=== PATIENT | female | born 1950 | race Caucasian/White ===

== ENCOUNTER → 2021-07-10 | Outpatient (CLI) | payer MEDICARE ==
--- NOTE | 2021-07-11 03:01 | MR ---
EXAMINATION TYPE: MR shoulder LT wo con DATE OF EXAM: 07/10/2021 COMPARISON: None HISTORY: Left shoulder pain and limited range of motion for 3 months. Multiplanar multiecho imaging of the left shoulder without contrast. There is mild shoulder joint effusion. The biceps tendon is intact. Subscapularis tendon is intact. There is some thickening and increased signal in the supraspinatus tendon in the subacromial joint sp blake and extending to the greater tuberosity. There is no retraction. There is full-thickness tear see n on the anterior aspect of the tendon. There is some mild spurring at the AC joint. There is moderat e subacromial joint space narrowing. There is fluid around the biceps tendon. Fluid is seen around th e subscapularis tendon. There is mild subdeltoid effusion. There is some mild deformity of the anteri or glenoid labrum. IMPRESSION: Full-thickness rotator cuff tear of the anterior supraspinatus tendon. Shoulder joint effusion and waddell bdeltoid effusion. Moderate subacromial joint space narrowing and impingement. 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 Anterior glenoid labral deformity consistent with a tear and degen erative changes..
== END | disposition home or self-care (01) ==
LOC: RADMRIMAIN 19:44
PROVIDERS: ATTEND Orthopaedic Surgery
DX: M75.122 Complete rotator cuff tear or rupture of left shoulder, not specified as traumatic (principal)

== ENCOUNTER → 2021-07-28 | Outpatient (CLI) | payer MEDICARE ==
[2021-07-28 14:09] LABS: Basophils # (A) 0.07 X 10*3/uL (0.00-0.10); Basophils % (A) 0.9 %; Eosinophils # (A) 0.25 X 10*3/uL (0.04-0.35); Eosinophils % (A) 3.2 %; HCT 43.5 % (37.2-46.3); HGB 13.8 g/dL (12.0-15.0); Immature Grans, Automated 0.1 %; Lymphocytes # (A) 2.04 X 10*3/uL (0.90-5.00); Lymphocytes % (A) 26.2 %; MCH 29.5 pg (27.0-32.0); MCHC 31.7 g/dL (32.0-37.0); MCV 92.9 fL (80.0-97.0); Mean Platelet Volume 10.6 fL (9.5-12.2); Monocytes # (A) 0.58 X 10*3/uL (0.20-1.00); Monocytes % (A) 7.5 %; NRBC Per 100 WBC 0 /100 WBCS (0.0-0.0); Neutrophils # (A) 4.83 X 10*3/uL (1.80-7.70); Neutrophils % (A) 62.1 %; Platelet Count 280 X 10*3/uL (140-440); RBC 4.68 X 10*6/uL (4.10-5.20); RDW 12.4 % (11.5-14.5); WBC 7.78 X 10*3/uL (4.50-10.00)
[2021-07-28 14:49] LABS: Anion Gap 10.9 mmol/L (10.00-18.00); Carbon Dioxide 24.6 mmol/L (20.0-27.5); Potassium 4.6 mmol/L (3.5-5.5)
== END | disposition home or self-care (01) ==
LOC: LABPAT 10:35
PROVIDERS: ATTEND Orthopaedic Surgery
DX: Z01.812 Encounter for preprocedural laboratory examination (principal); M75.42 Impingement syndrome of left shoulder
CPT/HCPCS: 80051; 85025

== ENCOUNTER 2022-01-15 08:08 | Day surgery (SDC) | payer MEDICARE ==
[2022-01-11 16:03] VITALS: BMI 26.4
--- NOTE | 2022-01-14 21:54 | HP ---
HISTORY AND PHYSICAL DATE OF SURGERY: 01/15/2022. HISTORY OF PRESENT ILLNESS: Jessica Escudero is a 72-year-old patient seen with persistent left shoulder adhesions with history of previous shoulder arthroscopy. We discussed options. She elected to proceed with manipulation under anesthesia of left shoulder with steroid injection. Consent was obtained. PAST MEDICAL HISTORY: Hypertension, hyperlipidemia, and zgp-yowkbgh-jqbxfgrby diabetes. PAST SURGICAL HISTORY: Shoulder arthroscopy, knee arthroscopy, cardiac catheterization, tonsillectomy. DAILY MEDICATIONS: 1. Aspirin. 2. Lisinopril. 3. Metformin. 4. Metoprolol. 5. Rosuvastatin. ALLERGIES: None. SOCIAL HISTORY: She denies tobacco use. PHYSICAL EXAMINATION: Evaluation of the left shoulder, her previous arthroscopic portal sites appear well healed. Her flexion is 90 degrees. Abduction is 90 degrees. External rotation is 30 degrees with good strength. Her distal neurovascular exam is intact. RADIOGRAPHS: Radiographs of the left shoulder revealed a stable conversion to a flat anterior acromion. IMPRESSION: 1. Left shoulder adhesive capsulitis. 2. History of previous left shoulder arthroscopy. 3. Hypertension. 4. Hyperlipidemia. 5. Mdm-valsqwh-yqgttfkzk diabetes. PLAN: Manipulation under anesthesia of left shoulder with steroid injection. MMODL / IJN: [id number] /
[~2022-01-15 08:08] MED LIST: DEXAMETHASONE SOD PHOSPHATE 4 MG/ML 1 ML VIAL IV ONE; HYDROmorphone 0.5 MG/0.5 ML SYRINGE IVP PRN; LACTATED RINGERS 1,000 ML IV SCH; ONDANSETRON 4 MG/2 ML VIAL IVP ONE
[2022-01-15 09:17] LABS: Glucose,Whole Blood 155 mg/dL (70-110)
[2022-01-15] MEDS ORDERED: fentaNYL (PF) 50 MCG/ML 2 ML AMP ONE (09:34)
[2022-01-15] MEDS ORDERED: PROPOFOL 10 MG/ML 20 ML VIAL IV ONE (09:34)
[2022-01-15] MEDS ORDERED: KETOROLAC 15 MG/ML 1 ML VIAL ONE (09:34)
[2022-01-15] MEDS ORDERED: BUPIVACAINE (PF) 0.25% 30 ML VIAL INTRAARTIC ONE (09:47)
[2022-01-15] MEDS ORDERED: methylPREDNISolone ACETATE 80 MG/ML 1 ML VIAL INTRAARTIC ONE (09:47)
--- NOTE | 2022-01-15 09:52 | P.OP ---
Date of Procedure: 01/15/22 Preoperative Diagnosis: Left shoulder adhesive capsulitis Postoperative Diagnosis: Left shoulder adhesive capsulitis Procedure(s) Performed: Manipulation under anesthesia left shoulder with steroid injection Anesthesia: MAC Surgeon: Fernando Villela Estimated Blood Loss (ml): 0 Pathology: none sent Condition: stable Disposition: PACU Indications for Procedure: 72-year-old patient seen with persistent adhesive capsulitis regarding left shoulder. We discussed options for treatment. She elected to proceed with manipulation under anesthesia with steroid injection. Operative Findings: See description of procedure Description of Procedure: Patient was taken to a monitored anesthesia area. She received IV sedation by the department of anesthesia. Once sufficient anesthesia was noted I performed a manipulation of left shoulder achieving full range of motion with audible tearing of adhesions. The anterior aspect of the left shoulder was prepped and draped in the normal sterile orthopedic fashion. I injected a mixture of 40 mg of Depo-Medrol and 2 mL quarter percent Marcaine intra-articular under sterile technique. I took the shoulder through a full range of motion. I applied a sterile Band-Aid. The patient was now awakened having tolerated procedure well.
[2022-01-15 09:59] VITALS: RESP 16; TEMP 97.3
[2022-01-15] MEDS ORDERED: HYDROcodone/APAP 7.5-325MG 1 EACH TAB ONE (10:39)
[2022-01-15] MEDS ORDERED: HYDROcodone/APAP 7.5-325MG 1 EACH TAB PO ONE (10:40)
[2022-01-15 11:08] VITALS: BP 118/73; PULSE 64
== END 2022-01-15 11:22 | disposition home or self-care (01) ==
LOC: OR 08:08
PROVIDERS: ATTEND Orthopaedic Surgery
DX: M75.02 Adhesive capsulitis of left shoulder (principal); I10 Essential (primary) hypertension; E78.5 Hyperlipidemia, unspecified; E11.9 Type 2 diabetes mellitus without complications; I25.2 Old myocardial infarction; Z98.890 Other specified postprocedural states; Z79.82 Long term (current) use of aspirin; Z95.9 Presence of cardiac and vascular implant and graft, unspecified; Z95.5 Presence of coronary angioplasty implant and graft; Z90.89 Acquired absence of other organs
CPT/HCPCS: 23700; J1040; J2405; J3010; J1885; J2704; J1170

== ENCOUNTER → 2023-06-05 | Outpatient (CLI) | payer MEDICARE ==
[2023-06-06 03:30] LABS: ALT 72 U/L (8-44); AST 40 U/L (13-35); Albumin 3.6 g/dL (3.8-4.9); Alkaline Phosphatase 89 U/L (41-126); BUN/Creat Ratio 23.29 Ratio (12.00-20.00); Blood Urea Nitrogen 16.3 mg/dL (9.0-27.0); Calcium 9.8 mg/dL (8.7-10.3); Carbon Dioxide 24.2 mmol/L (21.6-31.8); Chloride 106 mmol/L (96-109); Glucose 128 mg/dL (70-110); Potassium 4.2 mmol/L (3.5-5.5); Sodium 144 mmol/L (135-145); Total Bilirubin 0.3 mg/dL (0.3-1.2); Total Protein 6.6 g/dL (6.2-8.2)
[2023-06-06 03:47] LABS: Basophils # (A) 0.06 X 10*3/uL (0.00-0.10); Basophils % (A) 0.8 %; Eosinophils # (A) 0.11 X 10*3/uL (0.04-0.35); Eosinophils % (A) 1.4 %; HCT 43.4 % (37.2-46.3); Lymphocytes # (A) 1.62 X 10*3/uL (0.90-5.00); Lymphocytes % (A) 20.4 %; MCH 24.3 pg (27.0-32.0); Mean Platelet Volume 10.2 FL (9.5-12.2); Monocytes # (A) 0.98 X 10*3/uL (0.20-1.00); Monocytes % (A) 12.3 %; NRBC Per 100 WBC 0 X 10*3/uL (0.00-0.01); Neutrophils # (A) 5.15 X 10*3/uL (1.80-7.70); Neutrophils % (A) 64.6 %; Platelet Count 359 X 10*3/uL (140-440); RBC 5.36 X 10*6/uL (4.10-5.20); RDW 17.2 % (11.5-14.5); WBC 7.96 X 10*3/uL (4.50-10.00)
== END | disposition home or self-care (01) ==
LOC: LABWHC1 14:14
PROVIDERS: ATTEND Family Medicine
DX: E87.1 Hypo-osmolality and hyponatremia (principal); D75.839 Thrombocytosis, unspecified
CPT/HCPCS: 36415; 80053; 85025

== ENCOUNTER → 2023-06-19 | Outpatient (CLI) | payer MEDICARE ==
--- NOTE | 2023-06-19 11:05 | US ---
EXAMINATION TYPE: US abdomen complete DATE OF EXAM: 06/19/2023 COMPARISON: NONE CLINICAL INDICATION: Female, 73 years old with history of R74.8 ABNORMAL LEVELS OF OTHER SERUM ENZYME S; Liver enzymes above reference range TECHNIQUE: Multiple sonographic images of the abdomen are obtained. FINDINGS: EXAM MEASUREMENTS: Liver Length: 18.7 cm Gallbladder Wall: 0.29 cm CBD: 0.35 cm Spleen: 10.6 cm Right Kidney: 11.4 x 6.0 x 5.6 cm Left Kidney: 13.0 x 5.5 x 7.1 cm STRANNER NOTES: Exam is limited due to gas. Pancreas: Limited visibility of tail. Liver: Appears enlarged. Gallbladder: Appears anechoic, folds seen Evidence for sonographic Hou's sign: No CBD: Appears wnl Spleen: Appears wnl Right Kidney: Hyperechoic area seen laterally: 0.9 x 0.5 x 0.4 cm. Left Kidney: Appears enlarged. Isoechoic lesion seen lower pole: 7.0 x 5.9 x 5.6 cm. Upper IVC: Appears wnl Abd Aorta: Appears wnl IMPRESSION: 1. Question nonobstructing cortical stone within the left kidney versus an area of scarring. 2. No evidence of cholelithiasis or cholecystitis. 3. There appears to be a solid mass in the lower pole of the left kidney measuring 7.0 x 5.9 x 5.6 cm would raise the suspicion of a renal cell carcinoma and a renal mass protocol CT or MRI would BE rec ommended for further evaluation.
== END | disposition home or self-care (01) ==
LOC: RADUSWWP 06:46
PROVIDERS: ATTEND Family Medicine
DX: N28.89 Other specified disorders of kidney and ureter (principal); R74.8 Abnormal levels of other serum enzymes
CPT/HCPCS: 76700

== ENCOUNTER → 2023-06-25 | Outpatient (CLI) | payer MEDICARE ==
[2023-06-25 12:30] LABS: African American GFR (CKD) >90 (>60 ml/min/1.73 sqM); Blood Urea Nitrogen 17 mg/dL (7-17); Non-African American GFR(CKD) 90 (>60 ml/min/1.73 sqM)
--- NOTE | 2023-06-27 17:24 | CT ---
EXAMINATION TYPE: CT abdomen wo/w con CT DLP: 923 mGycm, Automated exposure control for dose reduction was used. DATE OF EXAM: 06/25/2023 1:31 PM COMPARISON: Abdomen Ultrasound 06/19/2023 CLINICAL INDICATION:Female, 73 years old with history of N28.89 disorder of kidney and ureter; Disord er of LT kidney and ureter, solid mass LT kidney seen on US. TECHNIQUE: CT abdomen performed per facility renal mass protocol. Axial unenhanced, post contrast, th ree-minute delayed images submitted. Sagittal and coronal reformats [facility] Contrast used:100 mL of Isovue 300 with IV Contrast, (none if empty) Oral contrast used: with Oral Contrast (none if empty) FINDINGS: LOWER CHEST: Several various sized solid rounded pulmonary nodules are seen in the included lung base s, largest 9 mm in the medial right lower lobe image 12 series 7. Heart size is within normal limits. Moderate coronary arterial calcifications. Possible small sliding hiatal hernia. ABDOMEN LIVER: No gross evidence of mass. There are a few tiny hypodensities seen which are too small to liv acterize. GALLBLADDER AND BILE DUCTS: Unremarkable gallbladder. No biliary ductal dilatation. PANCREAS: Unremarkable. SPLEEN: Vaguely marginated 1.6 cm hypodense lesion in the mid spleen, nonspecific. ADRENAL GLANDS: Mildly thickened and slightly nodular on the left. No gross evidence of mass. KIDNEYS AND UPPER URETERS: Right kidney: Small parenchymal scar in the superior kidney at its posteromedial aspect, with small u nderlying calcification which could be cortical. Otherwise no renal/upper ureteral calculi or hydrone phrosis. Postcontrast there is apparently normal corticomedullary enhancement without evidence of mas s. Delayed imaging best shows a 0.8 cm hypodense cortical lesion towards Morison's pouch with the caleb earance of a cyst. Right renal collecting system appears unremarkable as seen. Left kidney: No calculi are seen. In the mid to lower pole there is heterogeneously enhancing mass wh ich expands the kidney and bulges into the perinephric fat, especially along its inferolateral aspect ; this comes close to the spleen but there is a preserved fat plane. Greatest dimensions of the mass are 7.2 x 8.1 cm on axial image 35 series 6, and extends craniocaudally 6.1 cm. There are several sma ll enhancing vessels seen about the kidney at the level of the mass, which probably represents tumora l neovascularity. Additionally at the inferior aspect of the mass there is a small exophytic nodule m easuring 1.5 cm which appears contiguous with the mass and likely represents extension of tumor; this nearly touches the adjacent colon, however there appears to be preserved fat plane. There is questionable early invasion of a mid left renal calyx adjacent to the mass. Otherwise there is a mildly prominent left extrarenal pelvis which shows a fluid contrast level but no clear evidence of mass and the visualized upper ureter appears nondilated. STOMACH AND BOWEL: Contrast traverses the stomach and small bowel loops without evidence of obstructi on. Moderate stool in the visualized colon. Appendix not seen in the scope of this exam. PERITONEUM/RETROPERITONEUM: No evidence of pneumoperitoneum or free fluid. No intraperitoneal mass is seen. VASCULATURE: Mild to moderate atherosclerotic calcifications are present throughout the abdominal aor ta and its branches, including the splenic artery. No evidence of aortic aneurysm. Mild narrowing of the ostia of the celiac, superior mesenteric, bilateral renal arteries. IVC appears of normal caliber . Right renal vein enhances normally. The majority of the left renal vein enhances normally. Cannot e xclude early invasion of left renal venous branch in the mid kidney close to the level of the mass. LYMPH NODES: There are a few prominent left para-aortic lymph nodes at the level of the kidney, the l argest 1 cm image 38 series 6. No enlarged by CT criteria nodes are elsewhere seen. SOFT TISSUE/ABDOMINAL WALL: Tiny fat-containing umbilical hernia. MUSCULOSKELETAL: No acute osseous abnormalities. Mild disc degeneration changes are present throughou t the included spine. IMPRESSION: 1. An 8.1 cm left renal mass, almost certainly malignant probably renal cell carcinoma. There are ar eas of bulging/extension of tumor into the adjacent perinephric fat, without gross evidence of invasi on of adjacent organs. There is evidence of neovascularity associated with the mass. 2. Cannot exclude early invasion of a calyx in the mid left kidney, nor early invasion of a left ashely al venous branch in the mid kidney. No definite tumor extension is otherwise seen beyond the hilum. 3. A mildly enlarged and a few prominent additional left para-aortic nodes at the level of the kidne y, raising concern for early metastatic disease. 4. Small cortical scar of the right kidney with small underlying calcification. No hydronephrosis or mass on the right. 5. Multiple subcentimeter pulmonary nodules in the lung bases, concerning for metastases.
== END | disposition home or self-care (01) ==
LOC: RADCTMAIN 11:46
PROVIDERS: ATTEND Family Medicine
DX: N28.89 Other specified disorders of kidney and ureter (principal); R91.8 Other nonspecific abnormal finding of lung field
CPT/HCPCS: 82565; 84520; 74170; 36415; Q9967

== ENCOUNTER → 2023-07-19 | Outpatient (CLI) | payer MEDICARE ==
[2023-07-19 12:29] LABS: African American GFR (CKD) >90 (>60 ml/min/1.73 sqM); Blood Urea Nitrogen 16 mg/dL (7-17); Non-African American GFR(CKD) >90 (>60 ml/min/1.73 sqM)
--- NOTE | 2023-07-19 13:14 | CT ---
Exam: CT Chest with contrast. Date: 07/19/2023. Comparison: CT abdomen on 06/25/2023. History: Lung nodule seen on previous abdomen and pelvis CT. Technique: CT examination of the chest was performed following the intravenous administration of 100 mL of Isovue-370. Coronal and sagittal reformats were performed. CT dose lowering techniques were us ed, to include: automated exposure control, adjustment for patient size, and/or use of iterative sky nstruction. FINDINGS: Mediastinum and Mary: There is no axillary, mediastinal or hilar lymphadenopathy. 2 cm left thyroid n odule. Thyroid ultrasound recommended. Pleural and Pericardial spaces: There are no pleural or pericardial effusions. Upper Abdomen: Large partially visualized left renal cell carcinoma. Indeterminate hypoattenuating le esa within the spleen. Cardiovascular: There is mild vascular calcification and plaque seen throughout the thoracic aorta wi thout evidence of aneurysmal dilation. There are moderate coronary artery calcifications. Pulmonary Artery: There are no central pulmonary arterial abnormalities. The examination was not per formed to evaluate for pulmonary embolism. Lung Parenchyma and Airways: There are numerous bilateral pulmonary nodules scattered throughout the lungs ranging between several millimeters up to approximately 1 cm in diameter which would be compati ble with metastatic disease. Bones: No fracture or aggressive osseous lesion. IMPRESSION: 1. Numerous bilateral pulmonary nodules would be most compatible with metastatic disease. 2. Partially visualized large left renal cell carcinoma was evaluated on the prior abdomen CT. 3. Left thyroid nodule. Thyroid ultrasound recommended.
== END | disposition home or self-care (01) ==
LOC: RADCTMAIN 11:41
PROVIDERS: ATTEND Internal Medicine Hematology & Oncology
DX: D41.10 Neoplasm of uncertain behavior of unspecified renal pelvis (principal); E11.9 Type 2 diabetes mellitus without complications; E78.5 Hyperlipidemia, unspecified; R91.8 Other nonspecific abnormal finding of lung field; E04.1 Nontoxic single thyroid nodule
CPT/HCPCS: 82565; 84520; 71260; 36415; Q9967

== ENCOUNTER → 2023-07-25 | Outpatient (CLI) | payer MEDICARE ==
--- NOTE | 2023-07-28 04:53 | PE ---
EXAMINATION TYPE: PET CT fusion skull to thigh DATE OF EXAM: 07/26/2023 COMPARISON: NONE HISTORY: Left renal mass TECHNIQUE: Following the intravenous administration of 12.12 mCi of F-18 FDG, whole body images are performed from the skull base to the midthigh. Images are reviewed on the computer in the coronal, a xial, and sagittal planes. Reconstructed rotating images are created on independent workstation and reviewed on the computer. A localization and attenuation correction CT is performed in conjunction with the PET scan. Blood glucose level equals 84 SCAN: Initial Scan FINDINGS: SKULL BASE AND NECK: No areas of abnormal hypermetabolic uptake. CHEST, MEDIASTINUM, AND HILAR REGION: Scattered small bilateral pulmonary nodules. For reference is a 1.3 cm right basilar pulmonary nodule axial image 98 without abnormal hypermetabolic uptake. There i s 8 mm left upper lobe pulmonary nodule axial image 66. A few show mild abnormal hypermetabolic uptak e in the upper lungs. Max SUV is 4.01 peripheral left upper lobe axial image 65. ABDOMEN AND PELVIS: Large heterogeneous hyperdense partially exophytic partially hypermetabolic mass extending laterally from the left kidney measuring approximate 6.8 x 7.4 cm segment 143 consistent wi th primary neoplasm. Normal excretion is seen. Mild nonspecific bowel uptake in the lower abdomen and pelvis. No definitive additional areas of abnormal hypermetabolic uptake. OSSEOUS STRUCTURES: Focus of abnormal hypermetabolic uptake right thoracic vertebrae lateral elements axial image 71, max SUV is 8.44. OTHER CT: Approximately 2.1 cm low dense left thyroid nodule (image 61 without abnormal hypermetaboli c uptake. Advise thyroid ultrasound follow-up to further evaluate and characterize if this is not kno wn finding. Coronary artery calcification is seen which is noted marked underlying coronary artery disease. Scatt ered colonic diverticula greatest involving the sigmoid colon. IMPRESSION: Known left renal malignancy with suspicious bilateral pulmonary nodules worrisome for met astatic disease. Cannot exclude early osseous metastatic disease involving the mid thoracic vertebra right-sided elements.
== END | disposition home or self-care (01) ==
LOC: RADPETMAIN 15:22
PROVIDERS: ATTEND Urology
DX: D41.02 Neoplasm of uncertain behavior of left kidney (principal)
CPT/HCPCS: 78815; A9552

== ENCOUNTER 2023-08-23 12:25 | Day surgery (SDC) | payer MEDICARE ==
[2023-08-22 11:27] VITALS: BMI 19.7
[~2023-08-23 12:25] MED LIST changes: -DEXAMETHASONE SOD PHOSPHATE 4 MG/ML 1 ML VIAL IV ONE; -HYDROmorphone 0.5 MG/0.5 ML SYRINGE IVP PRN; -ONDANSETRON 4 MG/2 ML VIAL IVP ONE
[2023-08-23] MEDS: LACTATED RINGERS 1,000 ML IV SCH (13:42)
[2023-08-23 13:47] LABS: Glucose,Whole Blood 122 mg/dL (70-110)
[2023-08-23] MEDS ORDERED: MIDAZOLAM 2 MG/2 ML VIAL ONE (13:51)
[2023-08-23] MEDS ORDERED: PROPOFOL 10 MG/ML 20 ML VIAL IV ONE (13:51)
[2023-08-23] MEDS ORDERED: LIDOCAINE 1% INJ 10MG/ML (20 ML MDV) ONE (13:51)
[2023-08-23] MEDS ORDERED: NEOSTIGMINE 1 MG/ML 10 ML VIAL ONE (13:51)
[2023-08-23] MEDS ORDERED: GLYCOPYRROLATE 0.2 MG/ML 2 ML VIAL ONE (13:51)
[2023-08-23] MEDS ORDERED: ROCURONIUM 10 MG/ML (5 ML VIAL) IV ONE (13:51)
[2023-08-23] MEDS ORDERED: PHENYLEPHRINE-0.9% NACL SYG 1,000 MCG/10 ML SYRINGE ONE (13:51)
--- NOTE | 2023-08-23 15:11 | P.PCN ---
Date of Procedure: 08/23/23 Operative Findings: Preoperative Diagnosis: Right lower lobe pulmonary nodule Left lower lobe pulmonary nodule Renal cell carcinoma, history of, rule out metastatic disease Preoperative Diagnosis: Right lower lobe pulmonary nodule Left lower lobe pulmonary nodule Postoperative Diagnosis: same Procedure(s) Performed: Flexible bronchoscopy Robotic-assisted bronchoscopy and addition to radial ultrasound evaluation of the left lower lobe pulmonary nodule Robotic-assisted transbronchial needle aspirate, transbronchial biopsies of the left lower lobe pulmonary nodule in addition to a bronchioloalveolar lavage Robotic-assisted transbronchial needle aspirate and transbronchial biopsy, brush right lower lobe pulmonary nodule Robotic-assisted transbronchial needle aspirate, transbronchial biopsies, brush of the right nodule lobe pulmonary mass nodule in addition to a bronchioloalveolar lavage Anesthesia: PHILLYA Surgeon: Esha Negron Estimated Blood Loss (ml): 0 Pathology: other Condition: stable Disposition: same day Operative Findings: A physical exam was performed. Informed consent was obtained from the patient after explaining all the risks (pneumothorax, life threatening bleeding, infection and adverse effects due to medications), benefits and alternatives to the procedure which the patient appeared to understand and so stated. The patient was connected to the monitoring devices. General anesthesia was induced and the patient was intubated by anesthesia. A final timeout was performed and the procedure confirmed by the attending staff bronchoscopist. The bronchoscope was inserted and the airway examined. The flexible bronchoscope was removed and the robotic bronchoscope was inserted. Registration was completed. I next guided the robotic bronchoscope using the navigation system into the left lower lobe posterior segment. Once in proper position, the bronchoscope was frozen. The radial EBUS probe was placed through the bronchoscope and confirmed abnormal u/s images vs normal lung. A needle was placed through the working channel and under fluoroscopic guidance, we sampled the area thought to have the mass twice. We then used a cloud biopsy pattern with ultrasound confirmation for 2 additional passes with the needle. U/S evaluation was then used to reconfirm location. Forceps were next introduced through working channel and extended the appropriate distance and 3 transbronchial biopsies were performed using fluoroscopic guidance. The u/s probe was then reinserted to confirm location. When confirmed this process was repeated for a total of 8-10 transbronchial biopsies. After reassessment with EBUS, a brush was placed through the extendable working channel for 1 pass with fluoroscopic guidance. U/S evaluation was then used to confirm location. 40ml of saline was then instilled into the area of the lesion. 5 ml of effluent from the BAL was collected. The aspirate was bloody and ultimately declotted and based on that, the sample was discarded. I next guided the robotic bronchoscope using the navigation system into the right lower lobe posterior segment. Once in proper position, the bronchoscope was frozen. The radial EBUS probe was placed through the bronchoscope and confirmed abnormal u/s images vs normal lung. A needle was placed through the working channel and under fluoroscopic guidance, we sampled the area thought to have the mass twice. We then used a cloud biopsy pattern with ultrasound confirmation for 2 additional passes with the needle. U/S evaluation was then used to reconfirm location. Forceps were next int roduced through working channel and extended the appropriate distance and 3 transbronchial biopsies were performed using fluoroscopic guidance. The u/s probe was then reinserted to confirm location. When confirmed this process was repeated for a total of 6 transbronchial biopsies. After reassessment with EBUS, a brush was placed through the extendable working channel for 1 pass with fluoroscopic guidance. U/S evaluation was then used to confirm location. 40ml of saline was then instilled into the area of the lesion. 10cc was aspiratred. The robotic bronchoscope was removed and the airway inspected with a flexible bronchoscope and 8 ml of effluent from the BAL was collected. The aspirate was bloody and ultimately declotted and based on that, the sample was discarded. Flex. bronchoscope was inserted and regular suctioning was done. At the completion of the procedure, no residual secretions or bloody material within the airway. The bronchoscope was removed. The patient was extubated. FINDINGS: 1.The airways appeared normal 2 Successful navigation, ultrasonographic identification, and biopsies of right lower lobe and left lower lobe pulmonary nodules 3.The the radial ultrasound view was eccentric/concentric RECOMMENDATIONS: Await pathology and cytology results The referring physician will be alerted to the results when available. The patient was advised to follow up with the referring physician with the biopsy results Patient will be called with results.
[2023-08-23] MEDS: SODIUM CHLORIDE 0.9% 500 ML 500 ML IV ONE (15:12)
[2023-08-23 15:22] LABS: Glucose,Whole Blood 95 mg/dL (70-110)
[2023-08-23 15:45] VITALS: TEMP 97.5
[2023-08-23 16:25] VITALS: BP 115/70; PULSE 85; RESP 18
--- NOTE | 2023-08-23 16:25 | XR ---
EXAMINATION TYPE: XR chest 1V DATE OF EXAM: 08/23/2023 COMPARISON: PET/CT 07/25/2023 HISTORY: 73-year-old female bronchoscopic biopsy assessment TECHNIQUE: Single frontal view of the chest is obtained. FINDINGS: Heart normal size. Atherosclerotic arch calcifications. Mild biapical pleural-parenchymal scarring. Mild hyperinflation. There is a focal 2.3 cm nodular density at the left midlung, probably post biopsy contusion given that no nodules were this size on the patient's 07/25/2023 CT. No pneumoth orax or pleural effusion. IMPRESSION: COPD. A 2.3 cm nodular density at the left midlung probably corresponds to some postbiop sy contusion. No appreciable pneumothorax.
--- NOTE | 2023-08-23 16:28 | FL ---
Fluoroscopy INDICATION: Pain FINDINGS: Fluoroscopy time: 1 minute 36 seconds. Total dose area product (DAP) in uGy*m?, mGy*cm? (or similar): 4.2996 Images obtained: 4. IMPRESSION: 1. Documentation of fluoroscopy.
== END 2023-08-23 16:38 | disposition home or self-care (01) ==
LOC: ORWHC2ENDO 12:25
PROVIDERS: ATTEND Internal Medicine Critical Care Medicine
DX: C34.32 Malignant neoplasm of lower lobe, left bronchus or lung (principal); C79.00 Secondary malignant neoplasm of unspecified kidney and renal pelvis; J44.9 Chronic obstructive pulmonary disease, unspecified; J98.4 Other disorders of lung; I25.2 Old myocardial infarction; I10 Essential (primary) hypertension; E78.5 Hyperlipidemia, unspecified; E11.9 Type 2 diabetes mellitus without complications; M19.90 Unspecified osteoarthritis, unspecified site; Z87.891 Personal history of nicotine dependence; Z79.84 Long term (current) use of oral hypoglycemic drugs; Z79.899 Other long term (current) drug therapy; Z95.5 Presence of coronary angioplasty implant and graft; Z98.890 Other specified postprocedural states
CPT/HCPCS: 88108; 88305; 71045; 31628; 31629; 31623; 31624; J2250; J2710; J2001; J2704; J2371; S2900; 88341; 88342

== ENCOUNTER → 2023-11-25 | Outpatient (CLI) | payer MEDICARE ==
[2023-11-25 12:08] LABS: African American GFR (CKD) >90 (>60 ml/min/1.73 sqM); Blood Urea Nitrogen 10 mg/dL (7-17); Non-African American GFR(CKD) >90 (>60 ml/min/1.73 sqM)
--- NOTE | 2023-11-25 14:02 | CT ---
EXAMINATION TYPE: CT chest w con CT DLP: 277 mGycm, Automated exposure control for dose reduction was used. DATE OF EXAM: 11/25/2023 12:48 PM COMPARISON: CT chest July 19, 2019. CLINICAL INDICATION:Female, 73 years old with history of C64.2 renal cell ca; PHH, nodules TECHNIQUE: Multiple axial images were obtained through the chest. Sagittal and coronal reformats were created for review. Contrast used:100 mL of Isovue 300 with IV Contrast (None if empty) Oral contrast used: (None if empty) FINDINGS: LUNGS/ PLEURA: Numerous pulmonary nodules are reidentified. Several of the nodule appears much larger than previous study July 19, 2023 AIRWAY: Patent and unremarkable. HEART: Size within normal limits. MEDIASTINUM: Conglomerate adenopathy in right hilum. VASCULATURE: No aortic aneurysm. MUSCULOSKELETAL: No acute osseous abnormalities SOFT TISSUES/LYMPH NODES: Unremarkable. LOWER NECK: No significant findings. UPPER ABDOMEN: No significant findings. IMPRESSION: Interval increase in several pulmonary nodule and question increased number of small Worsening right hilar adenopathy. Follow up recommendations for incidental pulmonary nodules, if there are any, are per [employer]?s [employer] [employer] or [employer]. https://radiopaedia.org/articles/[email or web address]-[email or web address]?lang=us
== END | disposition home or self-care (01) ==
LOC: RADCTMAIN 11:19
PROVIDERS: ATTEND Internal Medicine Hematology & Oncology
DX: C64.2 Malignant neoplasm of left kidney, except renal pelvis (principal); R59.0 Localized enlarged lymph nodes; R91.1 Solitary pulmonary nodule; E78.5 Hyperlipidemia, unspecified; I25.2 Old myocardial infarction; E11.9 Type 2 diabetes mellitus without complications
CPT/HCPCS: 82565; 84520; 71260; 36415; Q9967

== ENCOUNTER → 2024-02-20 | Outpatient (CLI) | payer MEDICARE ==
[2024-02-20 11:57] LABS: African American GFR (CKD) >90 (>60 ml/min/1.73 sqM); Blood Urea Nitrogen 26 mg/dL (7-17); Non-African American GFR(CKD) >90 (>60 ml/min/1.73 sqM)
--- NOTE | 2024-02-20 16:57 | CT ---
EXAMINATION TYPE: CT ChestAbdPelvis w con CT DLP: 995 mGycm, Automated exposure control for dose reduction was used. DATE OF EXAM: 02/20/2024 1:23 PM COMPARISON: CT chest 11/25/2023, 07/19/2023, PET/CT 07/26/2023, CT abdomen and pelvis 06/25/2023. CLINICAL INDICATION:Female, 74 years old with history of C64.2 MALIGNANT NEOPLASM OF LEFT KIDNEY, EXC EPT RE; [facility], Malignant neoplasm of LT kidney. Technique: Multiple axial images of the chest, abdomen, and pelvis were obtained following the intrav enous administration of 100 mL Isovue-300. Oral contrast was administered. Two-dimensional coronal an d sagittal reconstructions were obtained. Findings: CHEST: LUNGS/ PLEURA: No pleural effusion or pneumothorax. No focal consolidation. Interval increase in size and number of multiple scattered pulmonary nodules throughout the lungs. Examples include a medial r ight lower lobe 2.0 cm solid pulmonary nodule (series 4, image 40), previously 1.2 cm. Medial left up per lobe 1.4 cm spiculated nodule (series 4, image 26), previously 1.1 cm. And a lateral left upper lobe 1.3 cm pulmonary nodule (series 4, image 13), previously 1.2 cm. AIRWAY: Patent and unremarkable.. HEART: Size within normal limits. No pericardial effusion. Moderate coronary arterial calcification. MEDIASTINUM: Increasing size and mediastinal and right hilar heterogenous enhancing lymph nodes. Exam ples include a precarinal lymph node measuring 1.8 cm (series 3, image 23), previously 0.9 cm. And a right hilar lymph node measuring 2.9 cm (series 3, image 25), previously 2.4 cm. VASCULATURE: No aortic aneurysm. Mild atherosclerotic calcification of the aorta and its branches. MUSCULOSKELETAL: No acute osseous abnormalities. Development of lytic lesion involving the anterior T 4 vertebral body measuring approximately 1.8 cm. Expansile enhancing destructive lesion measuring 1.8 cm involving the transverse process and right posterior elements at T5. Similar Schmorl's node invol ving the superior endplate of the T5 vertebral body. SOFT TISSUES/LYMPH NODES: Mild diffuse anasarca. No axillary adenopathy. LOWER NECK: Heterogenous appearance of the thyroid gland. ABDOMEN: ABDOMEN LIVER: New few peripheral enhancing bilobar hepatic lesions consistent with metastasis. Examples incl ude a left hepatic lobe 1.5 cm lesion (series 3, image 49), right hepatic dome 1.6 cm lesion (series 3, image 42), and a inferior right hepatic lobe 1.7 cm lesion (series 3, image 65). Approximately 10 lesions. GALLBLADDER AND BILE DUCTS: Unremarkable. PANCREAS: Unremarkable. SPLEEN: Marginal increase in size of heterogenous hypodense 1.7 cm lesion, previously 1.6 cm. ADRENAL GLANDS: Unremarkable. KIDNEYS AND URETERS: Right: No hydronephrosis or renal calculi. Similar small parenchymal scar in the superior portion at its posterior medial aspect. Increasing size of peripheral right mid kidney 1.1 cm cyst, previously 0 .7 cm. Left: Increased size of the left heterogenous enhancing renal mass which is situated with mostly with in the mid and lower pole. This extends into the renal sinus. Measures 9.5 x 10.3 x 9.5 cm in AP, TV, CC dimensions. Previously measured 7.4 x 6.8 cm. No definitive renal vein invasion. This abuts the s pleen without definite invasion. There is abutment of the surrounding colon without definitive invasi on. No hydronephrosis or nephrolithiasis. PELVIS BLADDER: Incompletely distended but grossly unremarkable. REPRODUCTIVE: Unremarkable. ABDOMEN & PELVIS STOMACH AND BOWEL: Stomach and duodenum are unremarkable. Enteric contrast reaches the mid small charles l. Moderate colonic stool burden. No evidence of bowel obstruction. PERITONEUM: No evidence of pneumoperitoneum or free fluid. VASCULATURE: Moderate atherosclerotic calcifications are present throughout the abdominal aorta and i ts branches. Few pelvic phleboliths. MUSCULOSKELETAL: No acute osseous abnormalities. LYMPH NODES: Increasing size of retroperitoneal periaortic lymph nodes. Example includes an enlarging left periaortic heterogenous enhancing lymph node measuring 1.3 cm, previously 1.0 cm. SOFT TISSUE/ABDOMINAL WALL: Mild diffuse anasarca. IMPRESSION: Overall progression of disease with increased size of left renal malignancy, increase in number and e nlarging mediastinal and retroperitoneal metastatic lymphadenopathy, increased size and number of inn umerable metastatic pulmonary nodules, new enhancing metastatic hepatic lesions, and T4 and posterior right T5 worsening metastatic osseous lesions. [facility], , 02/20/2024 4:54 PM
== END ==
LOC: RADCTMAIN 11:10
PROVIDERS: ATTEND Internal Medicine Hematology & Oncology
CPT/HCPCS: 36415; 71260; 74177; 82565; 84520

== ENCOUNTER → 2024-05-14 | Outpatient (CLI) | payer MEDICARE ==
[2024-05-14 11:49] LABS: African American GFR (CKD) >90 (>60 ml/min/1.73 sqM); Blood Urea Nitrogen 29 mg/dL (7-17); Non-African American GFR(CKD) >90 (>60 ml/min/1.73 sqM)
--- NOTE | 2024-05-17 23:21 | CT ---
EXAMINATION TYPE: CT ChestAbdPelvis w con DATE OF EXAM: 05/14/2024 COMPARISON: Prior CT February 20, 2024 and older studies HISTORY: Malignant Ca of left kidney. CT DLP: 455.3 mGycm. Automated Exposure Control for Dose Reduction was Utilized. CONTRAST: CT scan of the thorax, abdomen and pelvis is performed with IV Contrast, patient injected with 100 mL of Isovue 300. FINDINGS: LUNGS/ PLEURA: There is new small to moderate-sized right-sided pleural effusion. There are enlarging bilateral pulmonary nodules. No pneumothorax. No focal consolidation. Likely interval increase in nu mber of nodules. For reference left upper lobe pulmonary nodule measures 1.4 x 1.1 cm size image 13 v ersus 1.2 x 1.0 cm. Reference left lower lobe pulmonary nodule measures 1.4 x 1.3 cm-image 40 versus 1.1 x 1.1 cm on prior. AIRWAY: Patent and unremarkable.. HEART: Size within normal limits. No pericardial effusion. Moderate coronary arterial calcification. MEDIASTINUM: Persistent abnormal mediastinal and right hilar heterogenous enhancing lymph nodes. Larg est right hilar region measures 3.0 x 2.4 cm on axial image 25 versus similar findings on most recent prior. Enlarging right pericardial lesion measuring 3.3 x 2.3 cm axial image 47 versus 1.0 cm on roger or. VASCULATURE: No aortic aneurysm. Mild atherosclerotic calcification of the aorta and its branches. MUSCULOSKELETAL: Stable lytic lesion involving the anterior T4 vertebral body . Stable destructive le esa involving the transverse process and right posterior elements at T5. Similar Schmorl's node invo lving the superior endplate of the T5 vertebral body. SOFT TISSUES/LYMPH NODES: Moderate diffuse anasarca more prominent versus prior. No axillary adenopat hy. LOWER NECK: Heterogenous appearance of the thyroid gland. ABDOMEN: ABDOMEN LIVER: Enlarging hepatic metastatic lesions. Hepatic dome lesion measures 2.1 x 1.7 cm axial image 46 versus 1.6 cm prior study GALLBLADDER AND BILE DUCTS: Unremarkable. PANCREAS: Unremarkable. SPLEEN: Stable heterogenous hypodense 1.7 cm lesion axial image 50 ADRENAL GLANDS: Unremarkable. KIDNEYS AND URETERS: Right: No hydronephrosis or renal calculi. Small simple cysts in the right kidney are redemonstrated Left: Increased size of the left heterogenous enhancing renal mass which is situated with mostly with in the mid and lower pole. This extends into the renal sinus. Measures approximate 12.5 x 10.7 cm axi al image 70 versus 10.2 x 9.5 cm prior study. No definitive renal vein invasion. This abuts the splee n without definite invasion. There is abutment of the surrounding colon without definitive invasion. No hydronephrosis or nephrolithiasis. PELVIS BLADDER: Incompletely distended but grossly unremarkable. REPRODUCTIVE: Unremarkable. ABDOMEN & PELVIS STOMACH AND BOWEL: Stomach and duodenum are unremarkable. Enteric contrast does not reach colon. Christa ent has little internal fat. No abnormal dilatation. PERITONEUM: No evidence of pneumoperitoneum or free fluid. VASCULATURE: Moderate atherosclerotic calcifications are present throughout the abdominal aorta and i ts branches. Few pelvic new sclerotic lesions Osseous structures: New sclerotic metastatic lesions from reference involving the T10 vertebra guerra l image 49 in the right iliac bone adjacent to sacroiliac crest largest coronal image 49. New tiny sc lerotic focus L4 vertebra coronal image 44. LYMPH NODES: Stable retroperitoneal periaortic lymph nodes. Example includes an enlarging left periao rtic heterogenous enhancing lymph node measuring 1.3 cm axial image 65. SOFT TISSUE/ABDOMINAL WALL: Mild to moderate diffuse anasarca most prominent in the pelvis more promi nent versus prior. IMPRESSION: Persistent progression of metastatic disease as detailed above. [facility], , 05/17/2024 11:18 PM
== END | disposition home or self-care (01) ==
LOC: RADCTMAIN 11:01
PROVIDERS: ATTEND Internal Medicine Hematology & Oncology
DX: C64.2 Malignant neoplasm of left kidney, except renal pelvis (principal)
CPT/HCPCS: 82565; 84520; 71260; 74177; 36415; Q9967

== ENCOUNTER → 2024-06-09 | Outpatient (CLI) | payer MEDICARE ==
--- NOTE | 2024-06-09 12:04 | XR ---
EXAMINATION TYPE: XR femur RT, XR Hip RT and AP Pelvis DATE OF EXAM: 06/09/2024 11:42 AM COMPARISON: None CLINICAL INDICATION: Female, 74 years old with history of C64.2 MALIGNANT NEOPLASM OF LEFT KIDNEY, EX CEPT RE; PHH, pain TECHNIQUE: XR femur RT, XR Hip RT and AP Pelvis frontal and lateral views of the femur. Frontal later al views of the hips with frontal view of the pelvis. FINDINGS: No evidence of acute osseous pathology, joint dislocation, or soft tissue swelling. Mild o steophyte formations of the superior acetabulum. Mild joint space narrowing. Atherosclerosis of the a rterial vasculature. Mild degeneration changes in the with osteophyte formation. Left hip appears int act with mild degeneration changes with joint space tearing and osteophyte formation. Multilevel dege neration changes spine. Large amount stool in the pelvis. IMPRESSION: 1. No acute osseous pathology. 2. Mild bilateral hip and right knee osteoporosis. 3. Severe atherosclerosis of the arterial vasculature. [facility], , 06/09/2024 12:02 PM
== END | disposition home or self-care (01) ==
LOC: RADXRMAIN 10:37
PROVIDERS: ATTEND Internal Medicine Hematology & Oncology
DX: C64.2 Malignant neoplasm of left kidney, except renal pelvis (principal); M81.0 Age-related osteoporosis without current pathological fracture; I70.90 Unspecified atherosclerosis; Z85.528 Personal history of other malignant neoplasm of kidney
CPT/HCPCS: 73502